=== PATIENT | male | born 1975 | race Caucasian/White ===

== ENCOUNTER 2021-01-09 14:39 | Emergency (ER) | payer SELFPAY ==
[~2021-01-09] VITALS: Ht 172.7 cm; Wt 90.0 kg
--- NOTE | 2021-01-09 14:54 | NUR ---
cardiology called back @ [id number]
[2021-01-09] MEDS ORDERED: ASPIRIN 81 MG TABLET CHEW ONE (14:58)
[2021-01-09] MEDS ORDERED: ASPIRIN 81 MG TABLET CHEW PO ONE (15:00)
[2021-01-09] MEDS ORDERED: SODIUM CHLORIDE FLUSH 10ML SYR IVF ONE (15:00)
[2021-01-09] MEDS: NITROGLYCERIN SINGLE TAB 0.4 MG SL PRN ×2 (15:04→15:13)
[2021-01-09 15:13] LABS: BASOPHILS % (AUTO) 1 % (0-1); EOSINOPHILS % (AUTO) 1 % (1-7); LYMPHOCYTES % (AUTO) 22 % (22-44); MEAN CORPUSCULAR HEMOGLOBIN 33.5 pg (27.5-34.5); MEAN CORPUSCULAR HGB CONC 34.1 g/dL (33.2-36.2); MEAN PLATELET VOLUME 8.9 fL (7.4-10.4); MONOCYTES % (AUTO) 10 % (2-9); NEUTROPHILS % (AUTO) 66 % (42-75); PLATELET COUNT 215 x10^3/uL (130-400); RED BLOOD COUNT 5.02 x10^6/uL (4.38-5.82)
[2021-01-09 15:14] LABS: MD NO
[2021-01-09] MEDS ORDERED: MORPHINE SULFATE 4 MG/ML, 1ML ONE ×3 (15:16→16:19)
[2021-01-09] MEDS: MORPHINE SULFATE 4 MG/ML, 1ML IVPush PRN ×2 (15:19→15:28)
--- NOTE | 2021-01-09 15:19 | NUR ---
PT REPORTS 7/10 CHEST PAIN UNRELIEVED BY NITRO X 2. DR. KNUTSON NOTIFIED. MORPHINE ORDERED AND GIVEN.
[2021-01-09 15:21] LABS: ALANINE AMINOTRANSFERASE 58 U/L (12-78); ALBUMIN 4.1 g/dL (3.4-5.0); ANION GAP 4 mmol/L (5-15); CALCIUM 9.3 mg/dL (8.5-10.1); CHLORIDE 105 mmol/L (98-107); CREATININE 1.15 mg/dL (0.7-1.3)
[2021-01-09 15:25] LABS: ALKALINE PHOSPHATASE 101 U/L (45-117); BILIRUBIN,TOTAL 0.6 mg/dL (0.2-1.0); TOTAL PROTEIN 7.6 g/dL (6.4-8.2); TROPONIN I < 0.015 ng/mL (0.000-0.045)
--- NOTE | 2021-01-09 16:10 | NUR ---
PT BACK FROM CT. PT TOLERATED CTs WELL. VS UPDATED. AWAITING CT READ.
[2021-01-09] MEDS ORDERED: OMNIPAQUE 350 MG/ML, 100ML BOTTLE ONE (16:14)
[2021-01-09] MEDS ORDERED: PANTOPRAZOLE 40 MG IV ONE ×2 (16:29→16:59)
[2021-01-09] MEDS ORDERED: MORPHINE SULFATE 4 MG/ML, 1ML IVPush ONE (16:30)
[2021-01-09] MEDS ORDERED: MAALOX/HYOSCYAMINE/LIDOCAINE 45 ML BTL PO ONE (17:30)
[2021-01-09 18:19] LABS: TROPONIN I < 0.015 ng/mL (0.000-0.045)
[2021-01-09] MEDS ORDERED: MAALOX/HYOSCYAMINE/LIDOCAINE 45 ML BTL ONE (18:29)
[2021-01-09 18:51] VITALS: BP 125/74
[2021-01-10] MEDS ORDERED: PANTOPRAZOLE 40 MG IV IVPush SCH (09:00)
== END 2021-01-09 18:53 | disposition home or self-care (01) ==
LOC: ED 17:43
DX: K29.00 Acute gastritis without bleeding (principal); R07.2 Precordial pain; R07.89 Other chest pain; M54.5 Low back pain; R06.02 Shortness of breath; I10 Essential (primary) hypertension; F17.210 Nicotine dependence, cigarettes, uncomplicated
CPT/HCPCS: 36415; 71045; 71275; 74174; 80053; 84484; 85025; 85379; 93005; 96374; 96375; 96376; 99285; C9113; J2270; Q9967